=== PATIENT | female | born 1995 | race Caucasian/White ===

== ENCOUNTER 2019-08-23 17:06 | Emergency (ER) | payer OTHER ==
[~2019-08-23] VITALS: Ht 167.6 cm; Wt 67.3 kg
[2019-08-23 17:44] LABS: BASO % 0.4 % (0.0-1.0); EOS % 0.3 % (0.0-3.0); HEMATOCRIT 37.1 % (36.0-47.0); HEMOGLOBIN 12.8 g/dl (12.0-15.5); LYMPH # 1.6 10^3/uL (1.5-5.0); LYMPH % 16.5 % (24.0-44.0); MEAN CORPUSCULAR HEMOGLOBIN 32.1 pg (27.0-33.0); MEAN CORPUSCULAR HGB CONC 34.5 g/dl (32.0-36.5); MONO # 0.5 10^3/uL (0.0-0.8); MONO % 5.2 % (0.0-5.0); NEUTROPHILS # 7.7 10^3/uL (1.5-8.5); NEUTROPHILS % 77.1 % (36.0-66.0); PLATELET COUNT, AUTOMATED 195 10^3/uL (150-450); RED BLOOD COUNT 3.99 10^6/uL (4.00-5.40)
[2019-08-23] MEDS ORDERED: PREN29TA4 PO (17:48)
[2019-08-23] MEDS ORDERED: ONDANSETRON 4MG/2ML VIAL (J2405) IV ONE (18:15)
[2019-08-23] MEDS ORDERED: NS 1,000 ML IV ONE (18:15)
[2019-08-23 18:32] LABS: ALBUMIN 3.6 GM/DL (3.2-5.2); ALT/SGPT 24 U/L (12-78); BILIRUBIN,DIRECT 0.2 MG/DL (0.0-0.2); BILIRUBIN,TOTAL 0.8 MG/DL (0.2-1.0); BLOOD UREA NITROGEN 9 MG/DL (7-18); CALCIUM LEVEL 9.1 MG/DL (8.5-10.1); CARBON DIOXIDE LEVEL 22 MEQ/L (21-32); CHLORIDE LEVEL 107 MEQ/L (98-107); CREATININE FOR GFR 0.66 MG/DL (0.55-1.30); GLOMERULAR FILTRATION RATE > 60.0 (>60); GLUCOSE, FASTING 71 MG/DL (70-100); HCG, SERUM QUANTITATIVE 75062 MIU/ML; LIPASE 175 U/L (73-393); POTASSIUM SERUM 3.8 MEQ/L (3.5-5.1); SODIUM LEVEL 137 MEQ/L (136-145); TOTAL PROTEIN 7.1 GM/DL (6.4-8.2)
[2019-08-23] MEDS ORDERED: ONDANSETRON 4 MG ORAL DISINTEGRATING TAB (Q0162 PER 1MG) PO ONE (19:30)
[2019-08-23] MEDS ORDERED: ONDA4TAB6 PO (19:44)
[2019-08-23 19:59] VITALS: BP 106/57
== END 2019-08-23 20:08 | disposition home or self-care (01) ==
LOC: M ED 17:06
DX: O21.9 Vomiting of pregnancy, unspecified (principal); R31.29 Other microscopic hematuria; R82.4 Acetonuria; Z3A.13 13 weeks gestation of pregnancy
CPT/HCPCS: 36415; 80048; 80076; 81001; 83690; 84702; 85025; 87086; 96361; 96374; 99284; J2405; Q0162

== ENCOUNTER 2019-09-08 22:49 | Emergency (ER) | payer OTHER ==
[~2019-09-08] VITALS: Ht 167.6 cm; Wt 69.1 kg
[~2019-09-08 22:49] MED LIST: ONDA4TAB6 PO; PREN29TA4 PO
[2019-09-08] MEDS ORDERED: ACETAMINOPHEN SUSP DYE FREE 160 MG/5 ML UDC PO ONE (23:30)
[2019-09-08] MEDS ORDERED: LIDOCAINE 1% MDV 20ML VIAL SC ONE (23:30)
[2019-09-09] MEDS ORDERED: PENICILLIN V POTASSIUM 500 MG TAB PO ONE
[2019-09-09] MEDS ORDERED: PENI250REC PO ×2 (00:01→00:04)
[2019-09-09 00:20] VITALS: BP 110/65
[2019-09-09] MEDS ORDERED: PENICILLIN VK 250 MG/5 ML PO ONE (01:00)
== END 2019-09-09 00:32 | disposition home or self-care (01) ==
LOC: M ED 22:49
DX: O99.712 Diseases of the skin and subcutaneous tissue complicating pregnancy, second trimester (principal); L02.214 Cutaneous abscess of groin; O99.412 Diseases of the circulatory system complicating pregnancy, second trimester; J02.0 Streptococcal pharyngitis; Z79.899 Other long term (current) drug therapy; Z88.1 Allergy status to other antibiotic agents; Z3A.16 16 weeks gestation of pregnancy

== ENCOUNTER 2019-09-25 10:33 | Emergency (ER) | payer OTHER ==
[~2019-09-25] VITALS: Ht 167.6 cm; Wt 73.0 kg
[~2019-09-25 10:33] MED LIST changes: +PENI250REC PO
[2019-09-25] MEDS ORDERED: LIDOCAINE 1% MDV 20ML VIAL SC ONE (11:15)
[2019-09-25] MEDS ORDERED: CEPH25SS PO (11:25)
[2019-09-25] MEDS ORDERED: CEPHALEXIN SUSP POWDER 250MG/5ML BTL 100ML PO ONE (11:30)
[2019-09-25 11:45] VITALS: BP 109/64
== END 2019-09-25 11:50 | disposition home or self-care (01) ==
LOC: M ED 10:33
DX: O99.712 Diseases of the skin and subcutaneous tissue complicating pregnancy, second trimester (principal); L02.416 Cutaneous abscess of left lower limb; Z3A.00 Weeks of gestation of pregnancy not specified; Z88.1 Allergy status to other antibiotic agents

== ENCOUNTER 2020-02-13 05:30 | Inpatient (IN) | payer OTHER ==
--- NOTE | 2020-01-17 06:52 | HPE ---
DATE OF SCHEDULED ADMISSION: 02/13/2020 This lady is a 24-year-old, 1, para 0, last menstrual period (LMP) 05/16/2019, estimated date of confinement (EDC) 02/20/2020, booked for elective primary section 02/13/2020. She was late entry to care. She had a fracture and a fusion of her tail bone at 90-degree angle. Orthopedic referral recommended a primary section. Her risk factor is the fusion of her tail bone at 90 degrees; otherwise, unremarkable. Presently is 5 feet 6 inches, 204 pounds. Her body mass index (BMI) is 24.21. LAB WORK: Her blood group is O positive, HIV negative, hepatitis negative, RPR negative, rubella immune, varicella immune. Urine negative. Gonorrhea and chlamydia are negative. Early 1-hour glucose was 108. She did not do an earlier 28-week glucose tolerance test (GTT). On examination today, appropriate symphysis fundus height. Four quadrant bowel sounds are noted. heart activity 141 beats per minute. Vertex presenting. She is normocephalic, atraumatic. Neck full range of motions. Pupils equal and reactive to light. Chest is clear bilaterally to bases. No wheezes or rhonchi. No costovertebral angle (CVA) tenderness. She has no rashes, lesions, or pruritus. No arthralgia, myalgia. No complaint of joint pain. No complaint of cough, wheeze, shortness of breath, or dyspnea on exertion. No bruising. No bleeding. Neurologic (neuro) complete. No incontinence, urgency, or frequency. No nausea, vomiting, diarrhea, or constipation. No diabetic issues. No heat or cold issues. 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 No sexually transmitted diseases (STDs). PAST MEDICAL: Is unremarkable. SURGICAL HISTORY: Is arthroscopy and wisdom teeth. FAMILY HISTORY: Is noncontributory. She does not smoke, drink, abuse drugs. She is . No domestic violence. ALLERGIES: CLINDAMYCIN, which is basically nausea and vomiting. We discussed the risks and benefits of primary section, including hemorrhage, infection, perforation, , reoperation, remote possibility of blood transfusion, remote possibility of hysterectomy for life-threatening bleeding issues, also risk of fetus ending up in the intensive care unit (NICU) with lacerations, low blood sugars, or respiratory distress. Patient expressed understanding of all the risks and benefits, signed the consent form. All questions were answered. 40-minute discussion.
[~2020-02-13] VITALS: Ht 167.6 cm; Wt 97.8 kg
[2020-02-13] VITALS (7 sets, daily range): BP systolic 109–119; BP diastolic 65–69
[~2020-02-13 05:30] MED LIST changes: +CEPH25SS PO; +IRON65TA2 PO; +VITA-243 PO
[2020-02-13] MEDS ORDERED: BUPIVACAINE HCL 0.25% 10ML VIAL XX ONE (06:00)
[2020-02-13] MEDS ORDERED: ceFAZolin SOD 2 GM in IV 1 EA IV ONE (06:00)
[2020-02-13] MEDS ORDERED: LR 1,000 ML IV SCH ×2 (06:00→10:00)
[2020-02-13] MEDS ORDERED: LR 1,000 ML IV ONE (06:00)
[2020-02-13] MEDS ORDERED: BICITRA 30ML SOLN UDC PO ONE (06:00)
[2020-02-13] MEDS ORDERED: ACETAMINOPHEN 650 MG SUPP PR ONE (06:00)
[2020-02-13] MEDS ORDERED: AZITHROMYCIN INJ 500 MG, VIAL MATE ADAPTER 1 EACH in D5W 250 ML IV ONE (06:00)
[2020-02-13 06:37] LABS: HEMATOCRIT 35.1 % (36.0-47.0); HEMOGLOBIN 12.1 g/dl (12.0-15.5); MEAN CORPUSCULAR HEMOGLOBIN 32.9 pg (27.0-33.0); MEAN CORPUSCULAR HGB CONC 34.5 g/dl (32.0-36.5); MEAN CORPUSCULAR VOLUME 95.4 fl (80.0-96.0); PLATELET COUNT, AUTOMATED 151 10^3/uL (150-450); RED BLOOD COUNT 3.68 10^6/uL (4.00-5.40); WHITE BLOOD COUNT 11.1 10^3/uL (4.0-10.0)
[2020-02-13] MEDS ORDERED: OXYTOCIN INJ 10 UNITS/ML VIAL (J2590) As Ordered ONE ×2 (07:02→07:03)
[2020-02-13] MEDS ORDERED: dexameTHASONE 4 MG/ML 1ML VIAL (J1100 PER 1MG) As Ordered ONE (07:03)
[2020-02-13] MEDS ORDERED: ONDANSETRON 4MG/2ML VIAL As Ordered ONE ×2 (07:03→10:42)
[2020-02-13] MEDS ORDERED: ePHEDrine SULFATE 25 MG/5 ML(5MG/ML) SYRINGE As Ordered ONE (07:03)
[2020-02-13] MEDS ORDERED: OXYTOCIN 30 UNITS IN 0.9% NaCl 500ML IV BAG (J2590) As Ordered ONE (07:06)
[2020-02-13] MEDS ORDERED: MORPHINE PRES-FREE INJ 10 MG/10 ML VIAL (J2274) As Ordered ONE (07:07)
[2020-02-13] MEDS ORDERED: NALOXONE INJ 0.4MG/1ML VIAL (J2310 PER 1MG) IV PRN ×2 (07:25)
[2020-02-13] MEDS ORDERED: METOCLOPRAMIDE INJ 10MG/2ML VIAL (J2765 PER 1) IV PRN ×2 (07:25→10:00)
[2020-02-13] MEDS ORDERED: diphenhydrAMINE 50MG/ML VIAL (J1200) IV PRN (07:25)
[2020-02-13] MEDS ORDERED: ONDANSETRON 4MG/2ML VIAL IV PRN ×3 (07:25→10:00)
[2020-02-13] MEDS ORDERED: NALBUPHINE HCL 10 MG/ML AMP (J2300) IV PRN (07:25)
[2020-02-13 08:44] LABS: CORD GAS ABE V -2.9; CORD GAS HCO3 A 25.5 MEQ/L; CORD GAS HCO3 V 22.8 MEQ/L; CORD GAS O2 SAT A 40.3 %; CORD GAS O2 SAT V 65.1 %; CORD GAS PCO2 A 55.4 mmHg; CORD GAS PCO2 V 43.1 mmHg; CORD GAS PH A 7.281 UNITS; CORD GAS PH V 7.342 UNITS; CORD GAS PO2 A 20.7 mmHg; CORD GAS PO2 V 27.5 mmHg; CORD GAS SBC A 21.5 MEQ/L; CORD GAS SBC V 21.4 MEQ/L; CORD GAS TCO2 A 27.2 MEQ/L; CORD GAS TCO2 V 24.2 MEQ/L
[2020-02-13] MEDS: PRENATAL VITAMINS CHEWABLE TABLET PO SCH (09:00)
[2020-02-13] MEDS: DOCUSATE SODIUM 100 MG CAP PO SCH ×2 (09:00→20:17)
[2020-02-13] MEDS ORDERED: METOCLOPRAMIDE INJ 10MG/2ML VIAL (J2765 PER 1) As Ordered ONE (09:40)
[2020-02-13] MEDS ORDERED: SIMETHICONE 80 MG CHEW TAB PO PRN (09:45)
[2020-02-13] MEDS ORDERED: MOM 30ML SUSPENSION UDC PO PRN (09:45)
[2020-02-13] MEDS ORDERED: HYDROmorphone (DILAUDID) 4 MG TAB PO PRN (09:45)
[2020-02-13] MEDS ORDERED: diphenhydrAMINE 25MG CAP PO PRN (09:45)
[2020-02-13] MEDS ORDERED: CALCIUM CARBONATE 500 MG CHEW U/D PO PRN (09:45)
[2020-02-13] MEDS ORDERED: ONDANSETRON 4 MG ORAL DISINTEGRATING TAB PO PRN (09:45)
[2020-02-13] MEDS ORDERED: MEASLES,MUMPS,RUBELLA VACCINE INJ (MMR-II) (90707) SC SCH (09:45)
[2020-02-13] MEDS ORDERED: HYDROmorphone 2 MG TAB PO PRN (09:45)
[2020-02-13] MEDS ORDERED: METHYLERGONOVINE MALEATE 0.2 MG TAB PO PRN (09:45)
[2020-02-13] MEDS ORDERED: ANUSOL HC CREAM 30GM TOP PRN (09:45)
--- NOTE | 2020-02-13 09:51 | ROOPDOC ---
[facility] Report Of Operation Report of Operation DATE OF PROCEDURE: 02/13/20 PREPROCEDURE DIAGNOSES: 1. Term 2. Fusion of Sacrum at 90degree angle. POSTPROCEDURE DIAGNOSES: 1. Term 2. Fusion of Sacrum at 90degree angle. PROCEDURE: Primary Low ransverse Section. SURGEON: Idalia Nagy MD POTATO SORTER: Caryn Roque CNM ANESTHESIA: Spinal, GUITAR TEACHER. ESTIMATED BLOOD LOSS: Approximately 700 mL. COMPLICATIONS: None. REMARKS: Vertex healthy baby girl 9 at 1minute and 9 at 5minutes with weight of 3560gm. No nuchal cord. Thin meconium. Normal uterus and tubes and ovaries. Specimen: Blood gases performed. DESCRIPTION OF PROCEDURE: Patient was brought back to the operating room. The spinal was performed and confirmed to be adequate. She was then laid in a supine position with a slight leftward tilt and draped and prepped in the usual sterile fashion. Confirmation of good anesthesia was performed and time out was done. Pfannensteil incision location was marked approximately 2cm above the pubic bone and approximately 9cm in length. The incision was made with a 12 blade scalpel and then carried through the subcutaneous tissue just barely piercing the midline of the fascia with electrocautery. The left side of the fascia was bluntly dissected free from the rectus muscle and elevated with a Cindy clamp and then transected with electrocautery. This was repeated on the right side. The superior fascia was grasped with two kochers and the rectus muscle was dissected free from the fascia with electrocautery. The two kochers were then brought to the inferior ed ges of the fascia to elevate and dissect the superior portion of the pyramidalis muscle from the fascia. The rectus muscle was divided along the midline and the peritoneum was entered bluntly superiorly. Retractors were placed. Uterine incision was then placed with a different 12 blade scalpel in the lower uterine segment transversing approximately 2cm. The serosa and myometrium were gently cut into. The layers were elevated with 2 Allis clamps and then a Cindy clamp was used to bluntly spread through the remainder of the uterus to avoid injuring the fetus. Amniotic sac was pierced and was clear. Fetus was in a OA position without a nuchal cord. I placed my hand into the uterus and flexed the head to allow delivery and then the body was delivered without difficulty. Mouth and nose were bulb suction. Cord was clamp x2 and cut and baby was handed to awaiting nurse with the above findings. The placenta was grasped and removed intact and normal. Uterus was exteriorized and wrapped in a damp lap and the inside was cleared of all clots and debris with a damp lap. The lower uterine incision edges were identified and grasped with T clamps. The uterine incision was closed with #1 Chromic in a running locked fashion. A second layer was performed with #1 Chromic in a horizontal mattress fashion for imbrication. Good hemostasis was noted. The posterior cul de sac was irrigated and cleared of all clots and debris. The uterus was replaced intra-abdominally. Both pericolic gutters were checked and cleared of all clots and debris. The incision was rechecked and found to be hemostatic. The retractors were removed. Three Cindy clamps were placed on the peritoneum for elevation and it was closed with 3-0 chromic, which was also used to reapproximate the lower edges of the rectus muscle. The rectus muscle was inspected and found to be hemostatic. The fascia was closed with 0 vicryl in a running unlocked fashion. The fascia was then checked to ensure there was no areas of looseness or defects, which there was not. The subcutaneous layer was irrigated and found to be hemostatic. The dermal edges were reaaproximated with 3-0 vicryl with interrupted U stitches. The epidermis was reapproximated with max. A pressure dressing was then placed. The uterus was then expressed. The count for lap, needles, and instruments was correct times 3. The patient was in stable condition to the PACU. Idalia Nagy MD February 13, 2020 09:51
[2020-02-13] MEDS ORDERED: PERCOCET 5MG/325MG TAB PO PRN (10:00)
[2020-02-13] MEDS ORDERED: fentaNYL 100 MCG/2 ML INJECTION (J3010) IV PRN (10:00)
[2020-02-13] MEDS ORDERED: MAXIMUM TYLENOL (APAP) = 4GM/24H XX SCH (10:30)
[2020-02-13] MEDS ORDERED: KETOROLAC 30 MG/ML 1ML VIAL As Ordered ONE (10:42)
[2020-02-13] MEDS: KETOROLAC 30 MG/ML 1ML VIAL IV SCH ×3 (10:46→22:33)
[2020-02-13] MEDS: LR 1,000 ML IV SCH ×2 (10:47→17:02)
[2020-02-13] MEDS: ACETAMINOPHEN 500 MG TAB PO SCH ×2 (14:00→22:33)
[2020-02-13] MEDS: PERCOCET 5MG/325MG TAB PO PRN (20:40)
[2020-02-14 02:00] VITALS: BP 108/58
[2020-02-14] MEDS: LR 1,000 ML IV SCH (02:23)
[2020-02-14] MEDS: PERCOCET 5MG/325MG TAB PO PRN ×2 (02:25→20:24)
[2020-02-14 05:57] VITALS: BP 108/63
[2020-02-14] MEDS: ACETAMINOPHEN 500 MG TAB PO SCH ×3 (06:10→21:28)
[2020-02-14] MEDS: IBUPROFEN 800 MG TAB PO SCH ×3 (06:10→22:58)
[2020-02-14 06:48] LABS: HEMATOCRIT 29.4 % (36.0-47.0); HEMOGLOBIN 10.3 g/dl (12.0-15.5); MEAN CORPUSCULAR HEMOGLOBIN 33.6 pg (27.0-33.0); MEAN CORPUSCULAR VOLUME 95.8 fl (80.0-96.0); PLATELET COUNT, AUTOMATED 136 10^3/uL (150-450); RED BLOOD COUNT 3.07 10^6/uL (4.00-5.40); WHITE BLOOD COUNT 13.2 10^3/uL (4.0-10.0)
--- NOTE | 2020-02-14 07:11 | IPNPDOC ---
Progress Note Date of Service: February 14, 2020 Day#: 1 Progress Note SUBJECT: Patient is a 24-year-old 1 now Para 1 status post uncomplicated PLTCS for fused sacrum at 90degrees, doing well postoperative day # 1. She has been ambulating, voiding spontaneously without issue (just had thurman removed) and tolerating regular diet. Breast feeding without issue. Reports lochia is like a normal period. Patient is ambulating well. Reports some cramping with . Pain is mild with pain medication. OBJECTIVE: VITAL SIGNS: Within normal limits, afebrile. GENERAL: No acute distress HEENT: MMM BREAST: Nontender, no erythema CARDIOVASCULAR EXAMINATION: RRR RESPIRATORY EXAMINATION: Bilaterally clear ABDOMINAL EXAMINATION: Soft, appropriate tenderness, nondistended, fundus -1 PERINEUM: Intact, minimal lochia EXTREMITIES: no edema, nontender WOUND: Dressing clean and intact ASSESSMENT: Patient is a 24-year-old 1 now Para 1 status post uncomp licated PLTCS for fused sacrum at 90degrees, doing well postoperative day # 1. Vitals within normal limits, afebrile, hemodynamically stable with no evidence of infection. PLAN: 1. Routine advances. care. 2. Tylenol and Motrin and possible Percocet for pain. 3. Encourage breast feeding and ambulation. 4. Staple removal tomorrow VS, I&O, 24H, Fishbone Vital Signs/I&O Vital Signs Date Time Temp Pulse Resp B/P (MAP) Pulse Ox O2 Delivery O2 Flow Rate FiO2 02/13/20 06:28 97.4 96 115/68 (84) Laboratory Data 24H LABS Laboratory Tests 2 02/13/20 00:16: Serology Scanned Report Hepatitis B Testing 02/13/20 06:25: Nucleated Red Blood Cells % (auto) 0.0 02/13/20 08:30: Cord Arterial Blood pH 7.281, Cord Arterial Blood PCO2 55.4, Cord Arterial Blood PO2 20.7, Cord Arterial Blood HCO3 25.5, Cord Arterial Blood Total CO2 27.2, Cord Arterial Blood Base Excess -2.0, Cord Arterial Base Excess (Standard 21.5, Cord Arterial Bld Oxygen Saturation 40.3, Cord Venous Blood pH 7.342, Cord Venous Blood PCO2 43.1, Cord Venous Blood PO2 27.5, Cord Venous Blood HCO3 22.8, Cord Venous Blood Total CO2 24.2, Cord Venous Base Excess (Actual) -2.9, Cord Venous Base Excess (Standard) 21.4, Cord Venous Blood Oxygen Saturation 65.1 CBC/BMP Laboratory Tests 02/13/20 06:25 Idalia Nagy MD February 13, 2020 09:55
[2020-02-14] MEDS: DOCUSATE SODIUM 100 MG CAP PO SCH ×2 (08:32→20:23)
[2020-02-14] MEDS: valACYclovir HCL 500 MG TAB PO SCH ×2 (08:32→20:23)
[2020-02-14] MEDS: PRENATAL VITAMINS CHEWABLE TABLET PO SCH (08:32)
[2020-02-14 10:20] VITALS: BP 117/62
[2020-02-14 13:55] VITALS: BP 111/66
[2020-02-14 18:00] VITALS: BP 110/58
[2020-02-14 22:00] VITALS: BP 124/78
[2020-02-15 01:56] VITALS: BP 113/70
[2020-02-15] MEDS: PERCOCET 5MG/325MG TAB PO PRN ×2 (03:19→11:29)
[2020-02-15] MEDS: ACETAMINOPHEN 500 MG TAB PO SCH (05:55)
[2020-02-15 06:17] VITALS: BP 125/72
[2020-02-15] MEDS: IBUPROFEN 800 MG TAB PO SCH (06:50)
--- NOTE | 2020-02-15 07:37 | IPNPDOC ---
Progress Note Date of Service: February 15, 2020 Day#: 2 Progress Note SUBJECT: Patient is a 24 yo s/p PLTCD ppd #2. She has been ambulating, vo iding spontaneously without issue and tolerating regular diet. Breast feeding without issue. Reports lochia is like a normal period. Pain is controlled with ibuprofen and percocet. She reports sharp pain on the left side. plans on using barrier contraceptive. OBJECTIVE: VITAL SIGNS: Within normal limits, afebrile. Alert and oriented times three. Abdomen: Fundus firm at U-2. Soft, no palpable mass. appropriately tender. LE: no edema/erythema/tenderness incision c/d/i, no erythema. stables removed and steri strips placed. A/P patient is ppd #2, doing well. discharge instructions given. patient had picked up post medication at [place]. discharge today. Le, DO VS, I&O, 24H, Fishbone Vital Signs/I&O Vital Signs Date Time Temp Pulse Resp B/P (MAP) Pulse Ox O2 Delivery O2 Flow Rate FiO2 02/15/20 06:17 98.4 88 18 125/72 (89) 02/15/20 03:49 Room Air 02/14/20 22:00 97 CONI OLEA DO February 15, 2020 07:37
--- NOTE | 2020-02-15 07:38 | OBDS ---
[facility] Obstetrical Discharge Sum. Obstetrical Discharge Summary Date: February 15, 2020 : 1 Term: 1 Pre-term: 0 Abortions: 0 Livin VDRL: Non-Reactive Rh: Negative Rubella: Immune Sex: Female Weight: grams (3560) Anesthesia: Regional Anesthesia A/P, Post Course List any complications Admission diagnosis: Gravid @ 39wks Fusion of Sacrum at 90degree angle. Discharge diagnosis: (primary low transverse section) Fusion of Sacrum at 90degree angle. Condition at Discharge: stable Discharge Instructions: Home Activity: as tolerated Diet: regular Medications: filled at [facility] Follow-up: 2 weeks post op Hospital course: Patient admitted for planned elected primary delivery at term. Surgery uncomplicated. course uncomplicated. Patient discharged home on hospital day #2. CONI OLEA DO February 15, 2020 06:20
[2020-02-15] MEDS: valACYclovir HCL 500 MG TAB PO SCH (08:57)
[2020-02-15] MEDS: DOCUSATE SODIUM 100 MG CAP PO SCH (08:57)
[2020-02-15] MEDS: PRENATAL VITAMINS CHEWABLE TABLET PO SCH (08:57)
[2020-02-15] MEDS ORDERED: ACET-683 PO (11:33)
[2020-02-15] MEDS ORDERED: PERCOCET PO (11:33)
[2020-02-15] MEDS ORDERED: DOCU100C16 PO (11:33)
[2020-02-15] MEDS ORDERED: IBUP80TA PO (11:33)
== END 2020-02-15 12:10 | disposition home or self-care (01) | DRG 773 ==
LOC: M LDI 05:30 → M OBS 11:35
PROVIDERS: ADMIT Obstetrics & Gynecology; ATTEND Obstetrics & Gynecology
PROC: 10D00Z1 Extraction of Products of Conception, Low, Open Approach (ICD-10-PCS; principal; 2020-02-13 07:30)
DX: O99.89 Other specified diseases and conditions complicating pregnancy, childbirth and the puerperium (principal); M43.27 Fusion of spine, lumbosacral region; Z3A.39 39 weeks gestation of pregnancy; Z37.0 Single live birth